=== PATIENT | female | born 1975 | race Caucasian/White ===

== ENCOUNTER 2016-11-28 13:52 | Emergency (ER) | payer MEDICAID ==
[~2016-11-28] VITALS: Ht 170.2 cm; Wt 92.6 kg
[~2016-11-28 13:52] MED LIST: LAMI200T PO; LITH600C PO; PRIL20CA9 PO; PROM25TA5 PO; TOPA100T11 PO; TOPA25TA8 PO
[2016-11-28 14:09] VITALS: BP 128/85; PULSE 80; RESP 16; TEMP 99.2; O2SAT 100
[2016-11-28] MEDS ORDERED: LITH600C PO (14:24)
[2016-11-28] MEDS ORDERED: PROP60TA PO (14:24)
[2016-11-28] MEDS ORDERED: TOPA100T11 PO (14:24)
[2016-11-28] MEDS ORDERED: LAMI200T PO (14:24)
--- NOTE | 2016-11-28 14:40 | PD ---
HPI Chief Complaint: ENT Complaint Time Seen by Provider: 14:36 Travel History International Travel<30 days: No Contact w/Intl Traveler<30days: No Traveled to known affect area: No History of Present Illness HPI 41-year-old female presents to the emergency room for evaluation of right ear pain for the past 3 days. Patient states she started off with a cold 3 days ago including sore throat, bilateral earaches, fever, and congestion but HIS symptoms have subsided. States her ear pain is persistent. Pain radiates into the tongue and jaw. She has associated decreased hearing but no drainage. She has been taking 800 mg ibuprofen every 6 hours for pain and fever. She has no objective fevers documented. Denies nausea and vomiting. 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) Migraines: Yes Tetanus Vaccination: < 5 Years Influenza Vaccination: Yes ?: Unknown LMP: 12 12 16 : 5 Para: 2 Tubal Ligation: Yes (00) Past Surgical History Appendectomy: Yes (95) Other Surgery: Yes (three areas of Melanoma , bilat arms and spinal ) Social History Alcohol Use: Yes (occ) Tobacco Use: Yes (3 cigs a day) Substance Use: No Allergies-Medications (Allergen,Severity, Reaction): Coded Allergies: Shellfish (Verified Allergy, Severe, SWELLING, 11/28/16) Contrast Media (Verified Allergy, Intermediate, 11/28/16) Reported Meds & Prescriptions Reported Meds & Active Scripts Active Phenergan (Promethazine HCl) 25 Mg Tab 25 Mg PO Q6H PRN Prilosec (Omeprazole) 20 Mg Cap 20 Mg PO DAILY Reported Propranolol (Propranolol HCl) 60 Mg Tab 30 Mg PO DAILY [place] Carbonate 600 Mg Cap 600 Mg PO BID Lamictal (Lamotrigine) 200 Mg Tab 200 Mg PO BID Topamax (Topiramate) 100 Mg Tab 120 Mg PO DAILY Lamictal (Lamotrigine) 200 Mg Tab 200 Mg PO BID [place] Carbonate 600 Mg Cap 600 Mg PO TID Review of Systems Except as stated in HPI: all other systems reviewed are Neg Physical Exam Narrative GENERAL: Well-nourished, well-developed patient. SKIN: Warm and dry. HEAD: Normocephalic. EYES: No scleral icterus. No injection or drainage. EARS: Bilateral pinnae and external canals appear within normal limits. Left tympanic membrane without erythema, dullness or perforation. Right tympanic membrane is moderately erythematous without dullness or perforation. Pain with insertion of the otoscope. Data Data Last Documented VS Vital Signs Date Time Temp Pulse Resp B/P Pulse Ox O2 Delivery O2 Flow Rate FiO2 11/28/16 14:09 99.2 80 16 128/85 100 MDM Medical Decision Making Medical Screen Exam Complete: Yes Emergency Medical Condition: Yes Medical Record Reviewed: Yes Differential Diagnosis Otitis media versus otitis externa versus eustachian tube dysfunction Narrative Course 41-year-old female presents to the emergency room for evaluation of right ear pain for the past 3 days. Patient is afebrile and well-appearing in the emergency room. Vital signs stable. Physical exam reveals moderate erythema of the right tympanic membrane without perforation or effusion. Pain with insertion of the otoscope. Patient will be treated with amoxicillin for otitis media. Told to follow up with primary care physician and return for worsening symptoms. She understands and agrees to plan. Diagnosis Primary Impression: Right otitis media Qualified Code: H66.001 - Acute suppurative otitis media of right ear without spontaneous rupture of tympanic membrane, recurrence not specified Referrals: Primary Care Physician Patient Instructions: General Instructions, Otitis Media (ED) Additional Instructions: Rest and drink plenty of fluids. Take amoxicillin as directed, until gone. Take ibuprofen with food as directed, as needed for pain. Follow-up with a primary care physician. Return to the emergency room for worsening symptoms. Med/Other Pt SpecificInfo: Prescription(s) given Disposition: DISCHARGE HOME Condition: Stable Malathi Beltran Nov 28, 2016 14:40
[2016-11-28] MEDS ORDERED: AMOX500T PO (14:42)
== END 2016-11-28 15:10 | disposition home or self-care (01) ==
LOC: PHEFT 13:52
DX: H66.001 Acute suppurative otitis media without spontaneous rupture of ear drum, right ear (principal); F17.210 Nicotine dependence, cigarettes, uncomplicated
CPT/HCPCS: 99282